=== PATIENT | male | born 1980 | race Caucasian/White ===

== ENCOUNTER 2022-03-14 08:19 | Emergency (ER) | payer BC, OTHER ==
[~2022-03-14] VITALS: Ht 177.8 cm; Wt 111.6 kg
== END 2022-03-14 09:28 | disposition home or self-care (01) ==
LOC: ER 08:33
DX: S00.83XA Contusion of other part of head, initial encounter (principal); M54.2 Cervicalgia; M62.838 Other muscle spasm; V43.52XA Car driver injured in collision with other type car in traffic accident, initial encounter; Y92.488 Other paved roadways as the place of occurrence of the external cause; I10 Essential (primary) hypertension; Z85.038 Personal history of other malignant neoplasm of large intestine
CPT/HCPCS: 72050; 99283